=== PATIENT | female | born 1995 | race Caucasian/White ===

== ENCOUNTER 2020-02-10 10:44 | Emergency (ER) | payer OTHER ==
[2020-02-10] MEDS ORDERED: METOCLOPRAMIDE 5 MG/ML 2 ML VIAL IVP STA (11:30)
[2020-02-10] MEDS ORDERED: diphenhydrAMINE 50 MG/ML 1 ML VIAL IVP STA (11:30)
--- NOTE | 2020-02-10 11:35 | ED ---
Abdominal Pain HPI - General Chief Complaint: Abdominal Pain Stated Complaint: vomiting/body locking up Time Seen by Provider: 02/10/20 11:21 Source: patient, RN notes reviewed Mode of arrival: wheelchair Limitations: no limitations - History of Present Illness Initial Comments: This a 24-year-old female presents emergency Department chief complaint of nausea vomiting times one month. Patient states that she is from [place] has been seen at several hospitals for this complaint. Patient states that she is up from [place] with a friend visiting a cannabis shop. Patient states that she does not smoke marijuana. Patient states that her vomiting issue has been going on a month with no resolution. She states that she has not seen GI. Patient states that she's been hydrated, given antiemetics which helped. Patient states she has pain diffusely in her abdomen no localized pain. Patient does admit that she recently found out 2 weeks so that she is . Patient states that her symptoms started prior to figure this out. Patient denies any hematemesis or coffee-ground emesis. Denies any melena or hematochezia. Patient states she does not take any current medications. - Related Data Previous Rx's Medication Instructions Recorded Cephalexin [Keflex] 500 mg PO Q8HR #21 cap 02/10/20 Metoclopramide [Reglan] 10 mg PO TID PRN #15 tab 02/10/20 Allergies Allergy/AdvReac Type Severity Reaction Status Date / Time lurasidone [From Latuda] Allergy Nausea & Verified 02/10/20 13:50 Vomiting trifluoperazine Allergy Unknown Verified 02/10/20 13:50 [From Stelazine] Review of Systems ROS Statement: Those systems with pertinent positive or pertinent negative responses have been documented in the HPI. ROS Other: All systems not noted in ROS Statement are negative. Past Medical History Additional Past Medical History / Comment(s): chronic n/v, CHF, mitral valve regurg, Dominguez disease History of Any Multi-Drug Resistant Organisms: None Reported Additional Past Surgical History / Comment(s): valve repair Past Psychological History: No Psychological Hx Reported Smoking Status: Never smoker Past Alcohol Use History: None Reported Past Drug Use History: None Reported General Exam Limitations: no limitations General appearance: alert, in no apparent distress, anxious Head exam: Present: atraumatic, normocephalic, normal inspection Eye exam: Present: normal appearance, PERRL, EOMI. Absent: scleral icterus, conjunctival injection, periorbital swelling ENT exam: Present: normal exam, normal oropharynx, mucous membranes moist Neck exam: Present: normal inspection, full ROM. Absent: tenderness, meningismus, lymphadenopathy Respiratory exam: Present: normal lung sounds bilaterally. Absent: respiratory distress, wheezes, rales, rhonchi, stridor Cardiovascular Exam: Present: normal rhythm, tachycardia, normal heart sounds. Absent: systolic murmur, diastolic murmur, rubs, gallop, clicks GI/Abdominal exam: Present: soft, tenderness, normal bowel sounds. Absent: distended, guarding, rebound, rigid Back exam: Absent: CVA tenderness (R), CVA tenderness (L) Neurological exam: Present: alert Skin exam: Present: warm, dry, intact, normal color. Absent: rash Course Vital Signs 02/10/20 11:17 Temperature 98.1 F Pulse Rate 114 H Respiratory 20 Rate Blood Pressure 125/61 O2 Sat by Pulse 96 Oximetry Medical Decision Making - Medical Decision Making 24-year-old female presented for nausea vomiting just been on for 1 month. Patient does have moderate dehydration she is tolerating oral intake at this time. Patient did admit that she was which she has hCG of 7900. Patient told Sonia WOLF that she is here for an . Patient presented timing that she is here to visit for cannabis store as she is from [place]. Patient does have marijuana, cocaine in her system at this time. She is instructed to discontinue drug use. Patient provided antibiotics for possible UTI, is intact bacteria and . Return parameters were discussed. - Lab Data Result diagrams: 02/10/20 11:43 02/10/20 11:37 Lab Results 02/10/20 02/10/20 02/10/20 Range/Units 11:33 11:37 11:37 WBC (3.8-10.6) k/uL RBC (3.80-5.40) m/uL Hgb (11.4-16.0) gm/dL Hct (34.0-46.0) % MCV (80.0-100.0) fL MCH (25.0-35.0) pg MCHC (31.0-37.0) g/dL RDW (11.5-15.5) % Plt Count (150-450) k/uL Neutrophils % % Lymphocytes % % Monocytes % % Eosinophils % % Basophils % % Neutrophils # (1.3-7.7) k/uL Lymphocytes # (1.0-4.8) k/uL Monocytes # (0-1.0) k/uL Eosinophils # (0-0.7) k/uL Basophils # (0-0.2) k/uL Sodium 135 L (137-145) mmol/L Potassium 3.2 L (3.5-5.1) mmol/L Chloride 88 L (98-107) mmol/L Carbon Dioxide 19 L (22-30) mmol/L Anion Gap 28 mmol/L BUN 22 H (7-17) mg/dL Creatinine 0.94 (0.52-1.04) mg/dL Est GFR (CKD-EPI)AfAm >90 (>60 ml/min/1.73 sqM) Est GFR (CKD-EPI)NonAf 85 (>60 ml/min/1.73 sqM) Glucose 139 H (74-99) mg/dL Calcium 11.1 H (8.4-10.2) mg/dL Magnesium 2.1 (1.6-2.3) mg/dL Total Bilirubin 0.9 (0.2-1.3) mg/dL AST 26 (14-36) U/L ALT 13 (4-34) U/L Alkaline Phosphatase 116 (38-126) U/L Total Protein 9.3 H (6.3-8.2) g/dL Albumin 5.8 H (3.5-5.0) g/dL Amylase 52 (30-110) U/L Lipase 88 (23-300) U/L HCG, Quant 7398.2 mIU/mL Urine Color Dark Yellow Urine Appearance Cloudy H (Clear) Urine pH 6.0 (5.0-8.0) Ur Specific [place] 1.032 (1.001-1.035) Urine Protein 4+ H (Negative) Urine Glucose (UA) Trace H (Negative) Urine Ketones 4+ H (Negative) Urine Blood Small H (Negative) Urine Nitrite Negative (Negative) Urine Bilirubin 2+ H (Negative) Urine Urobilinogen 8.0 (<2.0) mg/dL Ur Leukocyte Esterase Moderate H (Negative) Urine WBC 39 H (0-5) /hpf Ur Squamous Epith Cells 41 H (0-4) /hpf Urine Bacteria Moderate H (None) /hpf Hyaline Casts 29 H (0-2) /lpf Urine Mucus Many H (None) /hpf Urine Opiates Screen Not Detected (NotDetected) Ur Oxycodone Screen Not Detected (NotDetected) Urine Methadone Screen Not Detected (NotDetected) Ur Propoxyphene Screen Not Detected (NotDetected) Ur Barbiturates Screen Not Detected (NotDetected) U Tricyclic Antidepress Not Detected (NotDetected) Ur Phencyclidine Scrn Not Detected (NotDetected) Ur Amphetamines Screen Not Detected (NotDetected) U Methamphetamines Scrn Not Detected (NotDetected) U Benzodiazepines Scrn Not Detected (NotDetected) Urine Cocaine Screen Detected H (NotDetected) U Marijuana (THC) Screen Detected H (NotDetected) 02/10/20 Range/Units 11:43 WBC 11.8 H (3.8-10.6) k/uL RBC 6.10 H (3.80-5.40) m/uL Hgb 17.9 H (11.4-16.0) gm/dL Hct 49.9 H (34.0-46.0) % MCV 81.7 (80.0-100.0) fL MCH 29.4 (25.0-35.0) pg MCHC 35.9 (31.0-37.0) g/dL RDW 12.8 (11.5-15.5) % Plt Count 377 (150-450) k/uL Neutrophils % 82 % Lymphocytes % 12 % Monocytes % 3 % Eosinophils % 1 % Basophils % 0 % Neutrophils # 9.7 H (1.3-7.7) k/uL Lymphocytes # 1.4 (1.0-4.8) k/uL Monocytes # 0.4 (0-1.0) k/uL Eosinophils # 0.1 (0-0.7) k/uL Basophils # 0.0 (0-0.2) k/uL Sodium (137-145) mmol/L Potassium (3.5-5.1) mmol/L Chloride (98-107) mmol/L Carbon Dioxide (22-30) mmol/L Anion Gap mmol/L BUN (7-17) mg/dL Creatinine (0.52-1.04) mg/dL Est GFR (CKD-EPI)AfAm (>60 ml/min/1.73 sqM) Est GFR (CKD-EPI)NonAf (>60 ml/min/1.73 sqM) Glucose (74-99) mg/dL Calcium (8.4-10.2) mg/dL Magnesium (1.6-2.3) mg/dL Total Bilirubin (0.2-1.3) mg/dL AST (14-36) U/L ALT (4-34) U/L Alkaline Phosphatase (38-126) U/L Total Protein (6.3-8.2) g/dL Albumin (3.5-5.0) g/dL Amylase (30-110) U/L Lipase (23-300) U/L HCG, Quant mIU/mL Urine Color Urine Appearance (Clear) Urine pH (5.0-8.0) Ur Specific [place] (1.001-1.035) Urine Protein (Negative) Urine Glucose (UA) (Negative) Urine Ketones (Negative) Urine Blood (Negative) Urine Nitrite (Negative) Urine Bilirubin (Negative) Urine Urobilinogen (<2.0) mg/dL Ur Leukocyte Esterase (Negative) Urine WBC (0-5) /hpf Ur Squamous Epith Cells (0-4) /hpf Urine Bacteria (None) /hpf Hyaline Casts (0-2) /lpf Urine Mucus (None) /hpf Urine Opiates Screen (NotDetected) Ur Oxycodone Screen (NotDetected) Urine Methadone Screen (NotDetected) Ur Propoxyphene Screen (NotDetected) Ur Barbiturates Screen (NotDetected) U Tricyclic Antidepress (NotDetected) Ur Phencyclidine Scrn (NotDetected) Ur Amphetamines Screen (NotDetected) U Methamphetamines Scrn (NotDetected) U Benzodiazepines Scrn (NotDetected) Urine Cocaine Screen (NotDetected) U Marijuana (THC) Screen (NotDetected) Disposition Clinical Impression: Dehydration, Nausea & vomiting, , Asymptomatic bacteriuria during Disposition: ADMITTED IP TO THIS [facility] Condition: Stable Instructions (If sedation given, give patient instructions): Acute Nausea and Vomiting (ED) Additional Instructions: Please return to the Emergency Department if symptoms worsen or any other concerns. Prescriptions: Cephalexin [Keflex] 500 mg PO Q8HR #21 cap Metoclopramide [Reglan] 10 mg PO TID PRN #15 tab PRN Reason: GERD Is patient prescribed a controlled substance at d/c from ED?: No Referrals: Nonstaff,Physician [Primary Care Provider] - 1-2 days Time of Disposition: 14:08
[2020-02-10 11:54] LABS: Appearance,Urine Cloudy (Clear); Bacteria,Urine Moderate /hpf; Bilirubin,Urine 2+ (Negative); Blood,Urine Small (Negative); Color,Urine Dark Yellow; Glucose,Urine (UA) Trace (Negative); Hyaline Casts,Urine 29 /lpf (0-2); Ketones,Urine 4+ (Negative); Leukocyte Esterase,Urine Moderate (Negative); Mucus,Urine Many /hpf; Nitrite,Urine Negative (Negative); Protein,Urine 4+ (Negative); Specific Gravity,Urine 1.032 (1.001-1.035); Squamous Epithelial Cell,Urine 41 /hpf (0-4); WBC,Urine 39 /hpf (0-5)
[2020-02-10 12:07] LABS: Amphetamine Screen,Urine Not Detected (NotDetected); Barbiturate Screen,Urine Not Detected (NotDetected); Benzodiazepines Screen,Urine Not Detected (NotDetected); Cocaine Screen,Urine Detected (NotDetected); Methadone Screen, Urine Not Detected (NotDetected); Opiate Screen,Urine Not Detected (NotDetected); Oxycodone Screen, Urine Not Detected (NotDetected); Phencyclidine Screen,Urine Not Detected (NotDetected); Tricyclic Antidepressant,Urine Not Detected (NotDetected); Urn Cannabinoid Scrn Detected (NotDetected)
[2020-02-10 12:11] LABS: Basophils % (A) 0 %; Eosinophils # (A) 0.1 k/uL (0-0.7); Eosinophils % (A) 1 %; HCT 49.9 % (34.0-46.0); HGB 17.9 gm/dL (11.4-16.0); Lymphocytes # (A) 1.4 k/uL (1.0-4.8); Lymphocytes % (A) 12 %; MCH 29.4 pg (25.0-35.0); MCHC 35.9 g/dL (31.0-37.0); MCV 81.7 fL (80.0-100.0); Monocytes # (A) 0.4 k/uL (0-1.0); Monocytes % (A) 3 %; Neutrophils # (A) 9.7 k/uL (1.3-7.7); Neutrophils % (A) 82 %; Platelet Count 377 k/uL (150-450); RDW 12.8 % (11.5-15.5); WBC 11.8 k/uL (3.8-10.6)
[2020-02-10 12:21] LABS: ALT 13 U/L (4-34); AST 26 U/L (14-36); African American GFR (CKD) >90 (>60 ml/min/1.73 sqM); Albumin 5.8 g/dL (3.5-5.0); Alkaline Phosphatase 116 U/L (38-126); Amylase 52 U/L (30-110); Anion Gap 28 mmol/L; Blood Urea Nitrogen 22 mg/dL (7-17); Calcium 11.1 mg/dL (8.4-10.2); Carbon Dioxide 19 mmol/L (22-30); Chloride 88 mmol/L (98-107); Glucose 139 mg/dL (74-99); Magnesium 2.1 mg/dL (1.6-2.3); Non-African American GFR(CKD) 85 (>60 ml/min/1.73 sqM); Potassium 3.2 mmol/L (3.5-5.1); Sodium 135 mmol/L (137-145); Total Bilirubin 0.9 mg/dL (0.2-1.3); Total Protein 9.3 g/dL (6.3-8.2)
[2020-02-10 12:36] LABS: HCG,Quantitative Serum 7398.2 mIU/mL
[2020-02-10] MEDS ORDERED: SODIUM CHLORIDE 0.9% 2,000 ML IV ONE (14:03)
[2020-02-10] MEDS ORDERED: ONDANSETRON 4 MG/2 ML VIAL IVP STA (14:03)
[2020-02-10] MEDS ORDERED: cefTRIAXone IN SWFI 1,000 MG/10 ML SYRINGE IVP STA (14:03)
[2020-02-10 15:07] VITALS: BP 121/74; PULSE 85; RESP 17; TEMP 98.3
== END 2020-02-10 15:51 | disposition other institution (70) ==
LOC: EC 10:44
DX: O21.9 Vomiting of pregnancy, unspecified (principal); O21.1 Hyperemesis gravidarum with metabolic disturbance; E86.0 Dehydration; O99.89 Other specified diseases and conditions complicating pregnancy, childbirth and the puerperium; R82.71 Bacteriuria; Z3A.00 Weeks of gestation of pregnancy not specified; Z88.8 Allergy status to other drugs, medicaments and biological substances
CPT/HCPCS: 99284; 96374; 96375 ×3; 96361 ×2; 36415; 80053; 82150; 83690; 83735; 85025; 81001; 84702; 80306; 87086; J1200; J2765; J2405; J0696